=== PATIENT | female | born 1995 | race African-American/Black ===

== ENCOUNTER 2018-02-16 19:58 | Emergency (ER) | payer MEDICAID, SELFPAY ==
[2018-02-16 20:01] VITALS: BP 142/82; PULSE 107; RESP 16; TEMP 36.7; O2SAT 97
--- NOTE | 2018-02-16 20:35 | W.ED.GENAD ---
Discharge Plan Disposition Patient Disposition: HOME Condition: Improving Discharge Details Chief Complaint: Nausea/Vomit/Diar Clinical Impression: Gastroenteritis Primary Care Provider: Unknown,Unknown ED Provider: Junito Cortez Home Meds and New Rx's Prescriptions: Continue PNV cmb#95-ferrous fumarate-FA [] 1 EACH tablet 1 ea PO QD Qty: 90 RF: 4 ferrous sulfate 325 MG tablet 325 mg PO DAILY Qty: 60 RF: 3 ibuprofen 600 MG tablet 600 mg PO Q6H PRN (Reason: Pain) Qty: 20 RF: 0 Discharge Instructions Instructions: Gastroenteritis (ED) Additional Instructions: May use the provided Zofran, every 6 hours, if needed for persistent nausea. Home to rest this evening. Small, frequent fluids to maintain hydration. Follow-up with regular doctor if not improved in 3 days time. Return to the emergency department for any acute concerns. Medical Decision Making MDM Narrative Medical decision making narrative: 22-year-old female presents with a day and a half of nausea, vomiting, diarrhea. She had a mild tachycardia at triage but otherwise unremarkable vital signs and normal at time of exam. She does not demonstrate peritonitis. Differential diagnosis includes viral versus foodborne illness/gastroenteritis. Patient requested to hold on IV, was given oral Zofran and a popsicle. Patient subsequently felt significant improvement. States she had no further discomfort or nausea. She requested discharge to home. She will be provided oral Zofran to be used as needed. She will return for any concerns, follow-up with primary care as needed. Consistent with probable viral gastroenteritis. HPI - General Adult General Mode of arrival: ambulatory. Date/Time Provider Initiated Documentation: 02/16/18 20:29. Limitations to Documentation: no limitations. Information obtained by: patient. History of Present Illness 22 year old F presents to the emergency department with the chief complaint of Vomiting/Diarrhea, described as moderate, and is localized to the abdomen. Patient started experiencing this hour(s) and it has been intermittent. No relieving factors improve symptom(s), Eating worsens symptoms . Patient notes loss of appetite. HPI Narrative: 22-year-old female presents from home complaining of a day and half intermittent episodes of nausea, vomiting, loose watery diarrhea. She has not had blood in the emesis or stool. She has not had a fever. She states that her son had a similar illness 3 days ago. She has been intolerant of liquids and solids by mouth. She feels weak and lightheaded. No other acute exacerbating or ameliorating factors. No recent travel or suspicious food contact Related Data Previous Rx's Medication Instructions Recorded ibuprofen 600 mg PO Q6H PRN #20 tab 11/25/17 Allergies Allergy/AdvReac Type Severity Reaction Status Date / Time penicillin G Allergy Unknown Hives Unverified 02/16/18 20:05 General Stated Complaint: Nausea/Vomit/Diar ANDREW: 3 Review of Systems Review of Systems 8 systems reviewed and otherwise - [facility] Family History Mother No problems noted. Father No problems noted. Sister No problems noted. Sister No problems noted. Brother No problems noted. Brother No problems noted. Social History Smoking/Tobacco Use Status: Never Surgical History Dilation and curettage (~2014) Tonsillectomy and adenoidectomy Exam Const General: cooperative, healthy appearing, comfortable, no acute distress and well developed Orientation: awake and oriented x3 HENMT Head: normal to inspection, normocephalic and atraumatic Eyes General: appearance normal, both eyes and all related structures Pupils: PERRL EOM: EOM intact bilaterally Neck Neck: normal visual inspection, full ROM, no lymphadenopathy and no meningeal signs Resp Effort & Inspection: normal respiratory effort and able to speak in complete sentences Auscultation: clear to auscultation bilaterally Cardio Rate: regular rate Rhythm: regular rhythm Heart Sounds: S1 normal and S2 normal Other: Not tachycardic at the time of my exam GI Inspection: normal to inspection Palpation: soft and no hepatosplenomegaly Skin Lesions: no lesions Rashes: no rashes Extrem General: normal to inspection, full ROM and normal capillary refill Psych Appearance: grossly normal Speech and Movement: speech and movement normal Mood: congruent mood Course Vital Signs Temperature 36.7 C 02/16/18 20:01 Pulse 107 H 02/16/18 20:01 Respiratory Rate 16 02/16/18 20:01 Blood Pressure 142/82 H 02/16/18 20:01 Pulse Oximetry 97 02/16/18 20:01 Temperature 36.7 C 02/16/18 20:01 Pulse 107 H 02/16/18 20:01 Respiratory Rate 16 02/16/18 20:01 Blood Pressure 142/82 H 02/16/18 20:01 Pulse Oximetry 97 02/16/18 20:01
--- NOTE | 2018-02-16 20:39 | ED.GENADUL_ITS ---
Discharge Plan Disposition Patient Disposition: HOME Condition: Improving Discharge Details Chief Complaint: Nausea/Vomit/Diar Clinical Impression: Gastroenteritis Primary Care Provider: Unknown,Unknown ED Provider: Junito Cortez Home Meds and New Rx's Prescriptions: Continue PNV cmb#95-ferrous fumarate-FA [] 1 EACH tablet 1 ea PO QD Qty: 90 RF: 4 ferrous sulfate 325 MG tablet 325 mg PO DAILY Qty: 60 RF: 3 ibuprofen 600 MG tablet 600 mg PO Q6H PRN (Reason: Pain) Qty: 20 RF: 0 Discharge Instructions Instructions: Gastroenteritis (ED) Additional Instructions: May use the provided Zofran, every 6 hours, if needed for persistent nausea. Home to rest this evening. Small, frequent fluids to maintain hydration. Follow-up with regular doctor if not improved in 3 days time. Return to the emergency department for any acute concerns. Medical Decision Making MDM Narrative Medical decision making narrative: 22-year-old female presents with a day and a half of nausea, vomiting, diarrhea. She had a mild tachycardia at triage but otherwise unremarkable vital signs and normal at time of exam. She does not demonstrate peritonitis. Differential diagnosis includes viral versus foodborne illness/gastroenteritis. Patient requested to hold on IV, was given oral Zofran and a popsicle. Patient subsequently felt significant improvement. States she had no further discomfort or nausea. She requested discharge to home. She will be provided oral Zofran to be used as needed. She will return for any concerns, follow-up with primary care as needed. Consistent with probable viral gastroenteritis. HPI - General Adult General Mode of arrival: ambulatory . Date/Time Provider Initiated Documentation: 02/16/18 20:29 . Limitations to Documentation: no limitations . Information obtained by: patient . History of Present Illness 22 year old F presents to the emergency department with the chief complaint of Vomiting/Diarrhea, described as moderate, and is localized to the abdomen. Patient started experiencing this hour(s) and it has been intermittent. No relieving factors improve symptom(s), Eating worsens symptoms . Patient notes loss of appetite. HPI Narrative: 22-year-old female presents from home complaining of a day and half intermittent episodes of nausea, vomiting, loose watery diarrhea. She has not had blood in the emesis or stool. She has not had a fever. She states that her son had a similar illness 3 days ago. She has been intolerant of liquids and solids by mouth. She feels weak and lightheaded. No other acute exacerbating or ameliorating factors. No recent travel or suspicious food contact Related Data Previous Rx's Medication Instructions Recorded ibuprofen 600 mg PO Q6H PRN #20 tab 11/25/17 Allergies Allergy/AdvReac Type Severity Reaction Status Date / Time penicillin G Allergy Unknown Hives Unverified 02/16/18 20:05 General Stated Complaint: Nausea/Vomit/Diar ANDREW: 3 Review of Systems Review of Systems 8 systems reviewed and otherwise - [facility] Family History Mother No problems noted. Father No problems noted. Sister No problems noted. Sister No problems noted. Brother No problems noted. Brother No problems noted. Social History Smoking/Tobacco Use Status: Never Surgical History Dilation and curettage (~2014) Tonsillectomy and adenoidectomy Exam Const General: cooperative, healthy appearing, comfortable, no acute distress and well developed Orientation: awake and oriented x3 HENMT Head: normal to inspection, normocephalic and atraumatic Eyes General: appearance normal, both eyes and all related structures Pupils: PERRL EOM: EOM intact bilaterally Neck Neck: normal visual inspection, full ROM, no lymphadenopathy and no meningeal signs Resp Effort & Inspection: normal respiratory effort and able to speak in complete sentences Auscultation: clear to auscultation bilaterally Cardio Rate: regular rate Rhythm: regular rhythm Heart Sounds: S1 normal and S2 normal Other: Not tachycardic at the time of my exam GI Inspection: normal to inspection Palpation: soft and no hepatosplenomegaly Skin Lesions: no lesions Rashes: no rashes Extrem General: normal to inspection, full ROM and normal capillary refill Psych Appearance: grossly normal Speech and Movement: speech and movement normal Mood: congruent mood Course Vital Signs Temperature 36.7 C 02/16/18 20:01 Pulse 107 H 02/16/18 20:01 Respiratory Rate 16 02/16/18 20:01 Blood Pressure 142/82 H 02/16/18 20:01 Pulse Oximetry 97 02/16/18 20:01 Temperature 36.7 C 02/16/18 20:01 Pulse 107 H 02/16/18 20:01 Respiratory Rate 16 02/16/18 20:01 Blood Pressure 142/82 H 02/16/18 20:01 Pulse Oximetry 97 02/16/18 20:01
[2018-02-16] MEDS: Ondansetron O.D.T. 4 MG TABEF PO ×2 (20:43→21:30)
[2018-02-16] MEDS: Ondansetron O.D.T. 4 MG TABEF 16 MG (21:29)
[2018-02-16 21:30] VITALS: PULSE 112; O2SAT 99
== END 2018-02-16 21:34 | disposition home or self-care (01) ==
PROVIDERS: Emergency Provider Emergency Medicine
DX: K52.9 Noninfective gastroenteritis and colitis, unspecified (principal)
CPT/HCPCS: 99283

== ENCOUNTER 2018-10-04 09:57 | Emergency (ER) | payer MEDICAID, SELFPAY ==
[2018-10-04 10:19] VITALS: BP 135/94; PULSE 84; RESP 18; TEMP 37; O2SAT 99
--- NOTE | 2018-10-04 10:23 | ED.GENADUL_ITS ---
Discharge Plan Disposition Patient Disposition: HOME Condition: Stable Discharge Details Chief Complaint: Nausea/Vomit/Diar Clinical Impression: Gastroenteritis Primary Care Provider: None,None ED Provider: Jonathan Wray Home Meds and New Rx's Prescriptions: New ondansetron 4 mg tablet,disintegrating 4 mg PO Q6H PRN (Reason: nausea and vomiting) Qty: 10 RF: 0 Continued PNV cmb#95-ferrous fumarate-FA [] 1 EACH tablet 1 ea PO QD Qty: 90 RF: 4 ferrous sulfate 325 MG tablet 325 mg PO DAILY Qty: 60 RF: 3 ibuprofen 600 MG tablet 600 mg PO Q6H PRN (Reason: Pain) Qty: 20 RF: 0 Discharge Instructions Instructions: Gastroenteritis (ED) Additional Instructions: Please slowly advance diet as tolerated and drink plenty of fluids. Use medication as prescribed and return immediately to the emergency department for any new or significant worsening of symptoms, fever, or concerns for worsening abdominal pain. Referrals: Primary Care Provider [Outside] (Care management or primary care office will contact you for arrangement of primary care establishment and any follow-up as need. ) Medical Decision Making Patient presenting to the emergency department for chief complaint of abdominal pain, nausea vomiting diarrhea. Patient reports that her son is had similar symptoms over the past 3 days. She states that last night she had a single episode of vomiting and some diarrhea that began then this morning started having some dry heaving and abdominal discomfort. Patient denies any fever chills or other associated symptoms. Patient is concerned that she got her son' s illness. Physical exam shows soft diffusely tender abdomen that has no surgical findings, no peritoneal findings, and is unremarkable except for patient's complaint of diffuse tenderness. No CVA tenderness, clear lung sounds, normal cardiac exam without tachycardia, other rader unremarkable exam. Patient denies extensive vomiting and states only one episode of emesis and only 2 or 3 episodes of diarrhea. Given this I doubt any electrolyte abnormalities and I am mainly concerned for viral etiology given reassuring physical exam. Patient was offered blood work, IV, and hydration. She states that she would prefer not to have extensive work-up at this time but was agreeable to urinalysis and test due to her stating that she mainly is here for symptomatic relief. I feel this is reasonable. Plan to p.o. challenge patient after dose of Zofran and determine the patient is not . Patient is not and urinalysis shows some concentration of urine but otherwise no UTI and otherwise nondiagnostic. Patient reassessed and states significant improvement after Zofran and Motrin. Patient was p.o. challenged and was able to tolerate p.o. intake and states no further pain or discomfort to her abdomen. Given this patient was again re-offered to perform labs but since she is improving she is again refusing lab work and sitting she will come back for worsening symptoms. Return precautions were discussed. Patient was prescribed Zofran ODT for home use. patient states that she does not have a primary care provider so placed upon care management list for establishment of PCP that I feel can happen in the next 2 to 4 weeks or as availability. After discussion of diagnosis and plan of care patient has no further needs, questions, or concerns and states clear understanding to return to the emergency department for any worsening symptoms. HPI General Mode of arrival: ambulatory . Date/Time Provider Initiated Documentation: 10/04/18 10:21 . Limitations to Documentation: no limitations . Information obtained by: patient and RN notes reviewed . History of Present Illness 23 year old F presents to the emergency department with the chief compl aint of Abdominal pain, nausea vomiting diarrhea, described as moderate, with intensity rated at 6. Quality is described as aching, and is localized to the abdomen. Patient started experiencing this hour(s) (2) and it has been constant. No relieving factors improve symptom(s), Patient did receive the following treatments prior to arrival, none Related Data Home Medications Medication Instructions Recorded Confirmed PNV cmb#95-ferrous fumarate-FA 1 ea PO QD #90 tab 11/30/16 [] ferrous sulfate 325 mg PO DAILY #60 tab-cap 11/30/16 ibuprofen 600 mg PO Q6H PRN #20 tab 11/25/17 02/16/18 ondansetron 4 mg PO Q6H PRN #10 tab 10/04/18 Previous Rx's Medication Instructions Recorded ibuprofen 600 mg PO Q6H PRN #20 tab 11/25/17 ondansetron 4 mg PO Q6H PRN #10 tab 10/04/18 Allergies Allergy/AdvReac Type Severity Reaction Status Date / Time penicillin G Allergy Unknown Hives Unverified 02/16/18 20:05 General Stated Complaint: Nausea/Vomit/Diar ANDREW: 4 Review of Systems Constitutional Denies chills, Denies fever(s) and Reports poor appetite Cardiovascular Denies chest pain and Denies dyspnea Respiratory Denies cough and Denies dyspnea Gastrointestinal Reports as per HPI, Reports abdominal pain, Denies melena, Denies change in bowel habits, Denies constipation, Denies diarrhea, Reports nausea and Reports vomiting Genitourinary Denies hematuria, Denies urinary incontinence, Denies urinary hesitancy and Denies urinary urgency Integumentary/Breasts Denies rash [facility] Surgical History Dilation and curettage (~2014) Tonsillectomy and adenoidectomy Family History Mother No problems noted. Father No problems noted. Sister No problems noted. Sister No problems noted. Brother No problems noted. Brother No problems noted. Social History Smoking/Tobacco Use Status: Never Alcohol Intake: current Alcohol Intake frequency: a few times a month Drug use: Never Substance use type: does not use Do you feel safe at home: Yes Do you feel safe in your relationship?: Yes Exam Const General: cooperative Orientation: alert, awake and oriented x3 Resp Effort & Inspection: normal respiratory effort and able to speak in complete sentences Auscultation: clear to auscultation bilaterally Cardio Rate: regular rate Rhythm: regular rhythm Heart Sounds: S1 normal and S2 normal GI Palpation: soft, no hepatosplenomegaly, not firm, no guarding, no masses, no pulsatile masses, not rigid, no splenomegaly and tender other (Diffuse, nonfocal); not at McBurney's point, not suprapubicly, Gonzalez's sign negative, with no rebound tenderness and Rovsing's sign negative Auscultation: normal bowel sounds Back/Spine/Pelvis Back: no CVA tenderness Neuro General: alert, awake, oriented x3, gait normal and moves all extremities Course Vital Signs Temperature 37 C 10/04/18 10:19 Pulse 84 10/04/18 10:19 Respiratory Rate 18 10/04/18 10:19 Blood Pressure 135/94 H 10/04/18 10:19 Pulse Oximetry 99 10/04/18 10:19 Temperature 37 C 10/04/18 10:19 Temperature Source Skin 10/04/18 10:19 Pulse 84 10/04/18 10:19 Respiratory Rate 18 10/04/18 10:19 Blood Pressure 135/94 H 10/04/18 10:19 Blood Pressure Position Sitting 10/04/18 10:19 Pulse Oximetry 99 10/04/18 10:19 Oxygen Delivery Method Room Air 10/04/18 10:19 Oxygen Flow Rate 0 10/04/18 10:19 Pain Level 6 10/04/18 10:19
[2018-10-04 10:58] LABS: Bilirubin Negative (Negative); Blood Moderate (Negative); Clarity Clear; Glucose Negative (Negative); Ketones Negative (Negative); Leukocyte Esterase Negative (Negative); Nitrite Negative (Negative); Specific Gravity >= 1.030 (1.005-1.025); Urobilinogen 0.2 EU/dL (Up TO 0.2); pH 5.5 (5-8)
[2018-10-04 11:03] LABS: Bacteria Rare HPF (Negative); Crystals Few Amorphous HPF (Negative); Epithelial Cells Few HPF (Negative); WBC 0-2 HPF (0-5)
[2018-10-04 11:04] LABS: C & S Indicated? No; Casts Negative LPF (Negative); Mucus Trace (Negative)
[2018-10-04 12:09] VITALS: BP 120/64; PULSE 75; RESP 18; TEMP 36.8; O2SAT 98
== END 2018-10-04 12:05 | disposition home or self-care (01) ==
PROVIDERS: Emergency Provider Nurse Practitioner Family
DX: K52.9 Noninfective gastroenteritis and colitis, unspecified (principal)
CPT/HCPCS: 81025; 99283; 81003; 81015

== ENCOUNTER 2019-02-12 17:25 | Outpatient (REF) | payer MEDICAID, SELFPAY ==
[2019-02-13 13:08] LABS: Chlamydia Result Negative; GC Result Negative; Specimen Description URINE
== END 2019-02-12 17:45 ==
LOC: LBN 17:25
PROVIDERS: Visit Provider Nurse Practitioner Women's Health
DX: Z11.3 Encounter for screening for infections with a predominantly sexual mode of transmission (principal)
CPT/HCPCS: 87491; 87591

== ENCOUNTER 2021-01-11 10:31 | Emergency (ER) | payer MEDICAID, SELFPAY ==
[2021-01-11 10:38] VITALS: BP 139/81; PULSE 81; RESP 18; TEMP 36.9; O2SAT 96
--- NOTE | 2021-01-11 10:45 | DI.RAD_ITS ---
Exam(s) XR THUMB LT EXAM: XR THUMB LT CLINICAL HISTORY: slammed in car door TECHNIQUE: COMPARISON: No exams were available for comparison FINDINGS: Three views were obtained. There is no evidence of fracture or dislocation. IMPRESSION: RADIATION DOSE DELIVERED: Total DLP
--- NOTE | 2021-01-11 10:53 | ED.GENADUL_ITS ---
Discharge Plan Disposition Patient Disposition: HOME Condition: Good Discharge Details Clinical Impression: Open finger fracture Primary Care Provider: None,None ED Provider: Sydney Vega Home Meds and New Rx's Prescriptions: New cephalexin 500 mg capsule 500 mg PO Q6H 7 Days Qty: 28 RF: 0 No Action ibuprofen [IBU-200] 200 mg Tablet RF: 0 Discharge Instructions Instructions: Finger Fracture (ED) Additional Instructions: Please take antibiotic as prescribed Follow-up with orthopedic listed below Keep your splint in place Keep your nail covered Do not recommend having acrylic removed until this is healed completely Please return with worsening pain, spreading redness, fever, chills Do not submerge in water until healed Ibuprofen and Tylenol for pain control Referrals: Sebastian Meredith MD [ [facility] STAFF PHYSICIAN] - Discharge Data Discharge Date/Time-TO BE ENTERED AT DEPARTURE: 01/11/21 11:56 Medical Decision Making Patient with laceration mid nail, concern regarding acrylic nail and obvious laceration Recommendation was to perform a digital block and remove the distal portion of the nail, however patient declined intervention, I discussed the difficulty in managing this without removing the distal nail and placing several sutures, patient has accepted these risk, she is alert, oriented, of decisional capacity, her tetanus was updated She has a small avulsion to the tuft of her thumb, I did treat her with an open fracture and placed her on Keflex She was also placed on orthopedic follow-up Splint was applied and there is coagulation achieved at time of discharge home Ibuprofen and Tylenol for pain control recommended Return precautions discussed and patient expressed understanding Wound cleansed copiously, splint applied HPI General Mode of arrival: ambulatory . Date/Time Provider Initiated Documentation: 01/11/21 10:40 . Limitations to Documentation: no limitations . Information obtained by: patient . HPI Narrative: This 25-year-old female presents with injury to her left palm. She states she slammed the in the car door accidentally. She denies any additional injury. She is unsure regarding her tetanus. She denies chance of . The event occurred an hour prior to arrival. She denies any significant changes. Related Data Home Medications Medication Instructions Recorded Confirmed cephalexin 500 mg PO Q6H 7 Days #28 cap 01/11/21 ibuprofen [IBU-200] 01/11/21 Previous Rx's Medication Instructions Recorded cephalexin 500 mg PO Q6H 7 Days #28 cap 01/11/21 Allergies Allergy/AdvReac Type Severity Reaction Status Date / Time penicillin G Allergy Unknown Hives Unverified 01/11/21 11:23 General Stated Complaint: Laceration ANDREW: 4 Review of Systems Narrative: Review of systems negative x3 aside from where indicated [facility] History Dilation and curettage (~2014) Termination of Tonsillectomy and adenoidectomy As child, possibly at age 11. Family History Mother , Heart failure at age 42. No problems noted. Father No problems noted. Sister No problems noted. Sister No problems noted. Brother No problems noted. Brother No problems noted. Social History Smoking/Tobacco Use Status: Current every day Tobacco Type: cigarettes Smoking risk assessment performed?: Yes Alcohol Intake: current Alcohol Intake frequency: a few times a month Drug use: Never Substance use type: does not use Do you feel safe at home: Yes Do you feel safe in your relationship?: Yes Exam Extrem Other: Left thumb with acrylic nail in place, laceration mid nail Brisk capillary refill distally, sensation intact distally Scant bleeding Course Vital Signs Vital signs: Vital Signs Temperature 36.9 C 01/11/21 10:38 Pulse 81 01/11/21 10:38 Respiratory Rate 18 01/11/21 10:38 Blood Pressure 139/81 01/11/21 10:38 Pulse Oximetry 96 01/11/21 10:38 Temperature 36.9 C 01/11/21 10:38 Temperature Source Skin 01/11/21 10:38 Pulse 81 01/11/21 10:38 Respiratory Rate 18 01/11/21 10:38 Blood Pressure 139/81 01/11/21 10:38 Blood Pressure Position Sitting 01/11/21 10:38 Pulse Oximetry 96 01/11/21 10:38 Oxygen Delivery Method Room Air 01/11/21 10:38 Oxygen Flow Rate 0 01/11/21 10:38
== END 2021-01-11 11:56 | disposition home or self-care (01) ==
PROVIDERS: Emergency Provider Physician Assistant
DX: S62.502B Fracture of unspecified phalanx of left thumb, initial encounter for open fracture (principal); W23.0XXA Caught, crushed, jammed, or pinched between moving objects, initial encounter
CPT/HCPCS: 90471; 99284; 73140

== ENCOUNTER 2022-02-28 17:00 | Outpatient (REF) | payer MEDICAID, SELFPAY ==
[2022-03-01 12:43] LABS: D-Dimer 508 ng/mlFEU (<500)
[2022-03-01 12:44] LABS: HCT 37.8 % (36.0-46.0); MCH 26.5 pg (27.0-33.0); MCHC 31.7 % (32.0-36.0); MCV 84 fL (80-95); MPV 9.9 fL (8.0-11.0); Platelet Count 303 10^3/uL (130-400); RBC 4.52 10^6/uL (3.93-5.22); RDW 12.9 % (11.7-14.6); WBC 7.72 10^3/uL (4.4-10.8)
[2022-03-01 12:45] LABS: Absolute Basophil Count 0.02 10^3/uL (0.0-0.2); Absolute Eosinophil Count 0.09 10^3/uL (0.0-0.7); Absolute Lymphocyte Count 3.02 10^3/uL (1.2-3.4); Absolute Monocyte Count 0.39 10^3/uL (0.1-0.8); Absolute Neutrophil Count 4.18 10^3/uL (1.2-6.7); Basophils % 0.3; Eosinophils % 1.2; Immature Grans % 0.3; Lymphocytes % 39.1; Monocytes % 5.1
[2022-03-01 12:46] LABS: ALT 28 U/L (14-59); AST 18 U/L (15-37); Albumin 3.8 g/dL (3.4-5.0); Alkaline Phosphatase 91 U/L (46-116); Anion Gap 11.7 mmol/L (3-11); BUN 9 mg/dL (7-18); Bilirubin, Total 0.3 mg/dL (0.2-1.0); CO2 23.3 mmol/L (21.0-32.0); CREATININE 0.7 mg/dL (0.55-1.02); Chloride 102 mmol/L (98-107); Estimated GFR 121.49 (mL/min/1.73m2); Glucose 106 mg/dL (74-106); Potassium 4.3 mmol/L (3.5-5.1); Sodium 137 mmol/L (136-145); Total Protein 7.9 g/dL (6.4-8.2)
== END 2022-02-28 17:01 | disposition home or self-care (01) ==
LOC: LBN 17:00
PROVIDERS: Visit Provider Nurse Practitioner Family
DX: R06.02 Shortness of breath (principal)
CPT/HCPCS: 80053; 85025; 85379

== ENCOUNTER → 2022-03-01 09:56 | Outpatient (CLI) | payer MEDICAID, SELFPAY ==
--- NOTE | 2022-03-01 | DI.CT_ITS ---
Exam(s) CT CHEST PE CTA EXAM: CT CHEST PE CTA CLINICAL HISTORY: SOB, R06.02, ELEVATED D-DIMER. TECHNIQUE: Imaging Protocol: CT angiography of the chest was performed using pulmonary embolus ana col. Multi planar reconstructions were performed. CONTRAST MATERIAL: Intravenous: Omnipaque 350 Contrast volume: 100 cc COMPARISON: No exams were available for comparison FINDINGS: CHEST: PULMONARY ARTERIES: There are no intraluminal filling defects to suggest acute pulmonary emboli. LUNGS: There are no infiltrates nor evidence of pulmonary infarction.. There are no pleural effusions . MEDIASTINUM: There is no hilar nor mediastinal adenopathy. CARDIAC: Heart size is upper normal. There is no pericardial effusion.Caliber of the thoracic aorta is within normal limits. No evidence of dissection. There is no significant shift of the interventri cular septum. PARTIALLY VISUALIZED UPPERMOST ABDOMEN: No obvious findings OSSEOUS: No significant osseous lesions.. IMPRESSION: 1. No evidence of acute pulmonary emboli. No evidence of pulmonary infarction.No pleural effusions. 2. No infiltrates nor intrathoracic adenopathy evident. RADIATION DOSE DELIVERED: 579.39mGy.cm Total DLP DATA REPOSITORY: All CT scans at this facility are submitted to the National Radiology Data Registry (NRDR) Dose Index Registry (DIR) with the [employer] (A[employer]). RADIATION OPTIMIZATION: All CT scans at this facility use at least one of these dose optimization te chniques: automated exposure control; mA and/or kV adjustment per patient size (includes targeted exa ms where dose is matched to clinical indication); or iterative reconstruction.
--- OUTSIDE RECORDS SUMMARY | 2022-03-01 10:00 | XMS_ITS ---
:1995 Author Care Team Providers Name Role Phone Singh Marshall Lidya Primary Care Provider Unavailable Allergies Code Code System Name Reaction Severity Status Onset NKDA ? Medications Name Status Start Date Stop Date ? ? ferrous sulfate 325 mg (65 mg iron) tablet Active ? Not available Problems Name Status Onset Date Source ? Unknown 08/01/2016 ? Anemia in Mother Complicating , Childbirth AND/OR Activ e 08/04/2016 ? [facility] Procedures Date Name Performed by ? 06/11/2014 TOOL DIE MAKER- D&C Information not avai lable Notes: ? Removal of Tonsils Information not avai lable 07/18/2016 US, Obstetric, 2Nd Trimester Information not available 09/01/2016 US, Obstetric, Follow-up Information not available Results Lab Results Date Name Specimen Result Interpretation Description Value Range Status Address ? 08/01/2016 Obstetric Normal White 7.1 3.8-10.8 Final Q uest Screen, Blood thousand/uL thousand/uL Diagnostics Serum or Cell - [place] Lab: Blood Count [address] , [place] ? ? Low Red 3.73 3.80-5.10 [facility] Blood million/uL million/uL Di agnostics Cell - [place] La b: Count [address] , [place] ? ? Low Hemogl 10.0 g/dL 11.7-15.[address] obin g/dL Diagnostic s - [place] La b: [address] , [place] ? ? Low Hemato 29.9 % 35.0-45.0 % Final Ques t crit Diagnostic s - [place] La b: [address] , [place] ? ? Normal Mcv 80.2 fL 80.0-100.0 [facility] fL Diagnostic s - [place] La b: [address] , [place] ? ? Low Mch 26.8 pg 27.0-33.[address] Diagnostic s - [place] La b: [address] , [place] ? ? Normal Mchc 33.4 g/dL 32.0-36.0 Final Ques t g/dL Diagnostic s - [place] La b: [address] , [place] ? ? Normal Rdw 13.8 % 11.0-15.0 % [facility] s - [place] La b: [address] , [place] ? ? Normal Platel 262 140-400 [facility] et thousand/uL thousand/uL Diagnostics Count - [place] La b: [address] , [place] ? ? Normal Mpv 8.5 fL 7.5-12.5 fL [facility] Diagnostic s - [place] La b: [address] , [place] ? ? Normal Absolu [id number] [facility] te cells/uL cells/uL Diagno stics Neutrop - [place] L ab: hils [address] , [place] ? ? Normal Absolu [phone] [facility] te cells/uL cells/uL Diagno stics Lymphoc - [place] L ab: ytes [address] , [place] ? ? Low Absolu 199 cells/uL 200-950 Final Qu est te cells/uL Diagnost ics Monocyt - [place] L ab: es [address] , [place] ? ? Normal Absolu 78 cells/uL 15-500 Final Ques t te cells/uL Diagnost ics Eosinop - [place] L ab: hils [address] , [place] ? ? Normal Absolu 14 cells/uL 0-200 Final Ques t te cells/uL Diagnost ics Basophi - [place] L ab: ls [address] , [place] ? ? Normal Neutro 79.8 % ? [facility] phils Diagnostic s - [place] La b: [address] , [place] ? ? Normal Lympho 16.1 % ? [facility] cytes Diagnostic s - [place] La b: [address] , [place] ? ? Normal Monocy 2.8 % ? [facility] shabbir Diagnostic s - [place] La b: [address] , [place] ? ? Normal Eosino 1.1 % ? [facility] phils Diagnostic s - [place] La b: [address] , [place] ? ? Normal Basoph 0.2 % ? [facility] ils Diagnostic s - [place] La b: [address] , [place] ? ? Normal Antibo no ? [facility] dy antibodies Diagno stics Screen, detected - [place] [facility]: RBC [address] , [place], [place] Titer and Ag ? ? ? ABO B ? [facility] Group [facility] s - [place] La b: [address] , [place] ? ? ? Rh Rh(D) ? [facility] Type positive Diagnost ics - [place] La b: [address] , [place] ? ? Normal RPR non-reactive non-reactive [facility] (DX) Diagnostic s W/refl - [place] La b: Titer [address] , Confirm [place] atory Testing ? ? Normal Hepati non-reactive non-reactive Niki l [facility] tis B Diagnostic s Surface - [place] L ab: Antigen [address] , [place] ? ? Normal Rubell 1.81 ? [facility] a Diagnostic s Antibod - [place] L ab: y (IgG) [address] , [place] 08/01/2016 Glucose Normal Glucos 105 mg/dL <135 mg/dL [facility]iki l [facility] Tolerance e, Diagnos tics Test, Gestati - [place] L ab: Gestational, onal [address] , (50G)-1 [place] 35 Cutoff 08/01/2016 Urinalysis, Normal Color dark yellow yellow Fin al [facility] Complete Diagnost ics - [place] La b: [address] , [place] ? ? ABNORMAL Appear cloudy clear [facility] ance Diagnostic s - [place] La b: [address] , [place] ? ? Normal Specif 1.019 1.001-1.035 Final Ques t ic Diagnostic s [place] - [place] L ab: [address] , [place] ? ? Normal Ph 7.0 5.0-8.0 [facility] Diagnostic s - [place] La b: [address] , [place] ? ? Normal Glucos negative negative [facility] e Diagnostic s - [place] La b: [address] , [place] ? ? Normal Biliru negative negative [facility] bin Diagnostic s - [place] La b: [address] , [place] ? ? Normal Ketone negative negative [facility] s Diagnostic s - [place] La b: [address] , [place] ? ? Normal Occult negative negative [facility] Blood Diagnostic s - [place] La b: [address] , [place] ? ? ABNORMAL Protei trace negative [facility] n Diagnostic s - [place] La b: [address] , [place] ? ? Normal Nitrit negative negative [facility] e Diagnostic s - [place] La b: [address] , [place] ? ? ABNORMAL Leukoc 2+ negative [facility] yte Diagnostic s Esteras - [place] L ab: e [address] , [place] ? ? ABNORMAL Wbc 10-20 /hpf < or = 5 Final Qu est /hpf Diagnostic s - [place] La b: [address] , [place] ? ? Normal Rbc none seen < or = 2 [facility] /hpf /hpf Diagnostic s - [place] La b: [address] , [place] ? ? ABNORMAL Squamo > or = 28 < or = 5 Final Qu est us /hpf /hpf Diagnostic s Epithel - [place] L ab: ial [address] , [place] ? ? ABNORMAL Bacter many /hpf none seen Final Q uest ia /hpf Diagnostic s - [place] La b: [address] , [place] ? ? ABNORMAL Hyalin 6-10 /lpf none seen Final Q uest e Cast /lpf Diagnostic s - [place] La b: [address] , [place] 08/01/2016 Hepatitis C Normal Hepati non-reactive non-reac tive [facility] Virus Ab, tis C Diagnos tics Serum Antibod - [place] L ab: y [address] , [place] ? ? Normal Signal 0.05 <1.00 [facility] to Diagnostic s Cut-off - [place] L ab: [address] , [place] 08/01/2016 HIV 1+2 Ab + Normal HIV non-reactive non-reac tive [facility] HIV1 P24 Ag, Ag/Ab, Diag nostics Quantitative 4TH Gen - [facility] Lab: Immunoassay, [address] , [place] 08/01/2016 TSH, Serum Normal TSH 0.55 mIU/L ? [facility] or Plasma W/refle Diagno stics x to - [place] La b: FT4 [address] , [place] 08/01/2016 HbA1C Normal Hemogl 4.9 % of <5.7 % of [facility] (Hemoglobin obin total HGB total HGB Diagnostics a1C), Blood a1C - [place] Lab: [address] , [place] 08/01/2016 Culture, ? Cultur see note ? Final Q uest Urine e, Diagnostic s Urine, - [place] La b: Routine [address] , [place] 08/01/2016 Aneuploidy ? No ? ? ? Ar iosa Risk and X & observa [facility] Y Analysis, t[employer]: [id number], Specific dDeepali Aburto Circulating Cell Free ([facility]F) DNA, Maternal Serum 07/18/2016 Pap, LB + Cer Normal Clinic ? [facility] HPV mRNA vix al Diagnost ics E6/E7 + [employer] - [place] Lab: Reflex HPV tion: [address], [place] ? ? Cer Normal Lmp: none given ? [facility] vix Diagnostic s - [place] La b: [address] , [place] ? ? Cer Normal Prev. 2014 ? [facility] vix Pap: Diagnostic s - [place] La b: [address] , [place] ? ? Cer Normal Prev. none given ? [facility] vix BX: Diagnostic s - [place] La b: [address] , [place] ? ? Cer Normal Source cervix ? [facility] vix : Diagnostic s - [place] La b: [address] , [place] ? ? Cer Normal Statem ? ? [facility] vix ent of Diagnostic s Adequac - [place] L ab: y: [address] , [place] ? ? Cer Normal Interp ? ? [facility] vix retatio Diagnosti cs n/resul - [place] L ab: t: [address] , [place] ? ? Cer Normal Infect ? ? [facility] vix ion: Diagnostic s - [place] La b: [address] , [place] ? ? Cer Normal Cytote ? ? [facility] vix chnolog Diagnosti cs ist: - [place] La b: [address] , [place] ? ? Cer Normal Hpv not detected not detected [facility] vix Mrna Diagnostic s E6/E7 - [place] La b: [address] , [place] 07/18/2016 CT + NG RNA, Normal Chlamy not detected not det ected [facility] PCR, [facility] Diagnostic s Unspecified Trachom - [place] [facility] Lab: Specimen atis [address] , [place] ? ? Normal Neisse not detected not detected Niki l [facility] hebrert Diagnostic s Gonorrh - [place] L ab: oeae [address] , [place] ? ? ? Commen ? ? [facility] t Diagnostic s - [place] La b: [address] , [place] Past Encounters None recorded. Social History Tobacco Smoking Status Unknown If Ever Smoked Vaccine List Vaccine Type DTaP, 5 pertussis antigens 02/08/1998 01/24/1999 DTP 1994 1994 11/21/1995 Hep B, adolescent or pediatric 1994 1994 Hep B, unspecified formulation 11/21/1995 04/09/1996 Hib (HbOC) 1994 1994 Hib (PRP-OMP) 02/08/1998 Hib, unspecified formulation 11/21/1995 influenza, live, intranasal 03/03/2010 MMR 11/21/1995 01/24/1999 OPV 1994 1994 11/21/1995 01/24/1999 Tdap 10/03/2006 varicella 04/09/1996 Notes: Some vaccines listed in Documen ts: #[id number], #[id number], #[id number], #[id number] could not be added to this pat ient's chart. Please review these documents and add these vaccines to the patient's chart manually as needed. Plan of Care Reminders Provider Appointments None recorded. ? ? Lab None recorded. ? ? Referral None recorded. ? ? Procedures None recorded. ? ? Surgeries None recorded. ? ? Imaging None recorded. ? ? Vitals 09/01/2016 10:45AM OB CHECK Height Weight BMI Blood Pressure 5 ft 3 in 232 lbs 41.1 kg/m2 120/74 mm[Hg] 08/16/2016 10:30AM OB CHECK Height Weight BMI Blood Pressure 5 ft 3 in 224 lbs 39.7 kg/m2 110/74 mm[Hg] 08/01/2016 08:45AM OB PAPERWORK Height Weight Blood Pressure 5 ft 3 in 224 lbs 104/60 mm[Hg] 07/18/2016 01:30PM NEW CONFIRM Height Weight BMI Blood Pressure 5 ft 3 in 224 lbs 39.7 kg/m2 104/60 mm[Hg]
[2022-03-01] MEDS: Omnipaque 350 MG/ML 100 ML BTL IJ (11:03)
[2022-03-01] MEDS: Normal Saline Flush 10 ML SYR IVP (11:04)
== END ==
PROVIDERS: Visit Provider Nurse Practitioner Family
DX: R06.02 Shortness of breath (principal); R79.1 Abnormal coagulation profile
CPT/HCPCS: 71275; J3490